=== PATIENT | male | born 1995 | race African-American/Black ===

== ENCOUNTER 2022-07-14 09:19 | Emergency (ER) | payer SELFPAY ==
[~2022-07-14] VITALS: Ht 188 cm; Wt 86.2 kg
[2022-07-14 09:24] VITALS: BP 134/70
--- NOTE | 2022-07-14 09:45 | NUR ---
TECH W/ PT FOR WOUND CARE
--- NOTE | 2022-07-14 09:55 | NUR ---
HOMELESS USP RESOURCES PROVIDED TO PT.
--- NOTE | 2022-07-14 10:04 | NUR ---
Tap card obtained from employment supervisor. Patient discharged in stable condition. Written and verbal after care instructions given. Patient verbalizes understanding of instruction.
== END 2022-07-14 10:04 | disposition home or self-care (01) ==
LOC: ER 09:20
DX: S90.822A Blister (nonthermal), left foot, initial encounter (principal); Z59.00 Homelessness unspecified; X58.XXXA Exposure to other specified factors, initial encounter; Y93.89 Activity, other specified; Y92.89 Other specified places as the place of occurrence of the external cause; Y99.8 Other external cause status